=== PATIENT | male | born 1950 | race Caucasian/White ===

== ENCOUNTER 2019-12-27 08:20 | Day surgery (SDC) | payer MEDICARE ==
[2019-12-20 11:32] LABS: POTASSIUM 3.9 mmol/L (3.5-5.1)
[2019-12-26 10:20] VITALS: BP 178/78
[~2019-12-27] VITALS: Ht 177.8 cm; Wt 102.8 kg
[2019-12-27] VITALS (16 sets, daily range): BP systolic 105–155; BP diastolic 59–74
[~2019-12-27 08:20] MED LIST: AEC81 PO; ATOR40TA71 PO; BUDE10.2 IH; DUONEB IH; FURO20TA4 PO; LISI40TA4 PO; METF-444 PO; MONT10TA26 PO; POTA-79 PO; TIOT4MIS5 IH; TRAMADOL PO
[2019-12-27] MEDS ORDERED: CEFAZOLIN SODIUM 1 GM VIAL ONE (08:58)
[2019-12-27] MEDS ORDERED: SODIUM CHLORIDE 0.9% 1000ML 1,000 ML IV ONE (08:59)
[2019-12-27] MEDS ORDERED: SUCCINYLCHOLINE CHLORIDE 20 MG/ML 10 ML VIAL ONE (12:58)
[2019-12-27] MEDS ORDERED: PROPOFOL 10 MG/ML 20ML VIAL IV ONE (12:59)
[2019-12-27] MEDS ORDERED: LIDOCAINE PF 2% 5ML ABBOJECT ONE (12:59)
[2019-12-27] MEDS ORDERED: ROCURONIUM 10MG/1ML SYR 10 MG/ML ML ONE (12:59)
[2019-12-27] MEDS ORDERED: FENTANYL CITRATE PF 50 MCG/1 ML 2ML VIAL ONE (13:01)
[2019-12-27] MEDS ORDERED: ROPIVACAINE 0.5% 5MG/ML 30ML IJ ONE (13:03)
[2019-12-27] MEDS ORDERED: EPINEPHRINE 1 MG/ML 30ML VIAL IJ ONE (13:14)
[2019-12-27] MEDS ORDERED: SODIUM CHLORIDE 0.9% 10 ML VIAL ONE (15:06)
[2019-12-27] MEDS ORDERED: PHENYLEPHRINE HCL 10 MG/ML 1ML VIAL IV ONE (15:06)
[2019-12-27] MEDS ORDERED: EPHEDRINE SULFATE 50 MG/ML AMPULE ONE (15:17)
[2019-12-27] MEDS ORDERED: KETOROLAC TROMETHAMINE 30MG/ML ONE (16:19)
[2019-12-27] MEDS ORDERED: ONDANSETRON HCL 4 MG/2 ML VIAL ONE (16:19)
[2019-12-27] MEDS ORDERED: NEOSTIGMINE 5MG/5ML SYR IV ONE (16:19)
[2019-12-27] MEDS ORDERED: GLYCOPYRROLATE 1 MG/5 ML SYRINGE ONE (16:19)
[2019-12-27] MEDS ORDERED: HYDR-4457 PO (16:25)
[2019-12-27] MEDS ORDERED: CEPH500B PO (16:25)
[2019-12-27] MEDS ORDERED: IPRATROPIUM/ALBUTEROL SULFATE 3 ML SOLUTION IH ONE (16:51)
== END 2019-12-27 18:25 | disposition home or self-care (01) ==
LOC: DAH 08:20
PROVIDERS: ATTEND Orthopaedic Surgery
DX: M19.011 Primary osteoarthritis, right shoulder (principal); Z20.828 Contact with and (suspected) exposure to other viral communicable diseases; M65.811 Other synovitis and tenosynovitis, right shoulder; M77.8 Other enthesopathies, not elsewhere classified; M25.811 Other specified joint disorders, right shoulder; I10 Essential (primary) hypertension; E11.51 Type 2 diabetes mellitus with diabetic peripheral angiopathy without gangrene; G47.33 Obstructive sleep apnea (adult) (pediatric); J43.9 Emphysema, unspecified; E66.9 Obesity, unspecified; K21.9 Gastro-esophageal reflux disease without esophagitis; E11.42 Type 2 diabetes mellitus with diabetic polyneuropathy; G89.29 Other chronic pain; Z98.890 Other specified postprocedural states; Z90.89 Acquired absence of other organs; Z99.81 Dependence on supplemental oxygen; Z87.891 Personal history of nicotine dependence; Z80.42 Family history of malignant neoplasm of prostate; Z90.5 Acquired absence of kidney; Z82.49 Family history of ischemic heart disease and other diseases of the circulatory system; Z79.899 Other long term (current) drug therapy; Z79.84 Long term (current) use of oral hypoglycemic drugs; Z79.82 Long term (current) use of aspirin
CPT/HCPCS: 29820; 29826; 29824; 36415; 80048; 82948 ×2; 94640; A4215; A4221; A4222; A4223; A4565; A4600; A4649 ×2; A4657; A4663; A4930; A6204; C9803; G0168; J0171; J0330; J0690; J1885; J2001; J2370; J2405; J2704; J2710; J2795; J3010; J3490 ×2; J7030 ×2; U0003